=== PATIENT | male | born 1935 | race Caucasian/White ===

== ENCOUNTER → 2017-12-24 12:15 | Outpatient (CLI) | payer MEDICARE | END | disposition home or self-care (01) | LOC: D.MRI 12:15 | DX: M50.90 Cervical disc disorder, unspecified, unspecified cervical region (principal) ==

== ENCOUNTER → 2019-02-03 14:30 | Outpatient (CLI) | payer MEDICARE ==
--- NOTE | ~2019-02-03 | EC ---
PATIENT:BRONWYN OROPEZA DATE OF SERVICE: 02/03/19 SEX: M MEDICAL RECORD: [id number] DATE OF : 39 LOCATION:[facility] AGE OF PATIENT: 83 ADMISSION DATE: 02/03/19 REFERRING PHYSICIAN: INTERPRETING PHYSICIAN: SUZANNE LINTON MD ECHOCARDIOGRAM REPORT ECHO CHARGES 5 ECHO LIMITED Date: 02/03/19 CLINICAL DIAGNOSIS: HTN ECHOCARDIOGRAPHIC MEASUREMENTS (adult normal given) AC root (d.<3.7cm) cm LV Septum d (<1.2 cm> 1.3 cm Valve Excursion cm LV Septum (systole) 1.5 cm Left Atria (s.<4.0cm> 4.0 cm LVPW d(<1.2cm) 1.7 cm RV (d.<2.3cm) 4.1 cm LVPW (sytole) 1.9 cm LV diastole(<5.6CM) 3.9 cm MV E-F(>70mm/sec) cm LV systole 2.6 cm LVOT Diameter cm MV exc.(>10mm) cm Est.ejection fraction (50-75%) % DOPPLER: LVIT cm/sec A 103 cm/sec E 83.0 cm/sec LA cm/sec RVSP 21 mmHg LVOT 94 cm/sec AOP1/2T m/s Asc. Ao 148 cm/sec RVOT cm/sec RA cm/sec PA cm/sec AV Gradient Peak 8.73 mmHg AV Mean 5.13 mmHg AV Area 1.3 cm MV Gradient Peak 4.60 mmHg MV Mean 2.17 mmHg MV Area cm COMMENTS: Dry Cleaning Manager: Aquilino TAMEZ [employer] Burner: 1 Dr. Linton TAPE# PACS Pericardial Effusion N DATE OF SERVICE: FINDINGS: 1. Left ventricular chamber size is within normal limits. Left ventricular systolic function is normal. Overall ejection fraction estimated at 55% to 60%. 2. Left atrium is upper limits of normal at 4.0 cm. Right atrium and right ventricular chamber sizes are within normal limits. 3. Valvular structures have normal structure and motion. 4. Doppler interrogation reveals no significant valvular insufficiency or stenosis and pulmonary systolic pressure is normal estimated at 21 mmHg. ECHOCARDIOGRAM REPORT [id number] BRONWYN OROPEZA 5. No evidence of pericardial effusion or left ventricular thrombus. TRANSINT:[id number] Voice Confirmation ID: [id number] DOCUMENT ID: [id number] SUZANNE LINTON MD CC: [id number] DICTATION DATE: 02/04/19 1018 LINE CONSTRUCTION SUPERINTENDENT: 02/04/19 1029 DEP CLI 02/03/19 [place] [id number] [place] [id number]
== END | disposition home or self-care (01) ==
LOC: D.HCCARDIO 14:30
PROVIDERS: ATTEND Internal Medicine Interventional Cardiology
DX: I10 Essential (primary) hypertension (principal)

== ENCOUNTER → 2020-12-04 18:38 | Outpatient (CLI) | payer MEDICARE ==
[2020-12-04 18:50] LABS: BASOPHILS 1.1 % (0-2); EOSINOPHILS 0.7 % (0-7); HEMATOCRIT 45.4 % (42.0-54.0); HEMOGLOBIN 14.8 g/dL (13.5-17.5); LYMPHOCYTES 15.1 % (15-50); MCH 28.4 pg (26.0-34.0); MCHC 32.6 g/dL (31.0-37.0); MCV 87.2 fL (80.0-100.0); MEAN PLATELET VOLUME 8.6 fL (7.4-10.4); MONOCYTES 8.4 % (2-11); NEUTROPHILS 74.7 % (40-80); PLATELET COUNT 343 10x3/uL (130-400); RBC 5.21 10x6/uL (4.20-6.10); RDW 13.6 % (11.5-14.5); WBC 11.4 10x3/uL (4.8-10.8)
[2020-12-04 19:00] LABS: CALC OSMOLALITY 270 mosm/kg (275-300); CALCIUM 9.2 mg/dL (8.5-10.1); CARBON DIOXIDE 29.2 mmol/L (21.0-32.0); CHLORIDE - SERUM 98 mmol/L (98-107); POTASSIUM - SERUM 4.1 mmol/L (3.5-5.1); SODIUM 137 mmol/L (136-145); UREA NITROGEN 11 mg/dL (7-18); eGFR NON AFRICAN AMERICAN 76 mL/min (90-120)
[2020-12-04 19:10] LABS: GLUCOSE 59 mg/dL (74-106)
== END | disposition home or self-care (01) ==
LOC: D.LABREF 18:38
PROVIDERS: ATTEND Family Medicine
DX: E87.1 Hypo-osmolality and hyponatremia (principal)